=== PATIENT | female | born 1980 | race Caucasian/White ===

== ENCOUNTER 2024-03-22 22:16 | Emergency (ER) | payer OTHER ==
[2024-03-22 22:42] LABS: BASOPHILS % (AUTO) 0.4 %; EOSINOPHILS # (AUTO) 0.1 10^3/uL (0.0-0.7); EOSINOPHILS % (AUTO) 1.2 %; HCT - HEMATOCRIT 37.8 % (37.0-47.0); HGB - HEMOGLOBIN 12.5 g/dL (12.0-16.0); LYMPHOCYTES # (AUTO) 1.7 10^3/uL (1.5-3.5); MEAN CORPUSCULAR HEMOGLOBIN 29.4 pg (27.0-31.0); MEAN CORPUSCULAR HGB CONC 33.1 g/dL (32.0-36.0); MEAN CORPUSCULAR VOLUME 88.9 fL (81.0-99.0); MONOCYTES # (AUTO) 0.7 10^3/uL (0.0-1.0); MONOCYTES % (AUTO) 6.5 %; NEUTROPHILS # (AUTO) 7.7 10^3/uL (1.5-6.6); NEUTROPHILS % (AUTO) 74.6 %; PLT - PLATELET COUNT 352 10^3/uL (130-450); RED BLOOD COUNT 4.25 10^6/uL (4.20-5.40); RED CELL DISTRIBUTION WIDTH 11.7 % (12.0-15.0); WHITE BLOOD COUNT 10.3 x10^3/uL (4.8-10.8)
[2024-03-22 23:04] LABS: ALBUMIN 4.5 g/dL (3.2-5.5); ALBUMIN/GLOBULIN RATIO 1.6 (1.0-2.2); BILIRUBIN,TOTAL 0.6 mg/dL (0.2-1.0); CALCIUM 9.2 mg/dL (8.5-10.3); CREATININE 0.7 mg/dL (0.6-1.3); POTASSIUM 3.4 mmol/L (3.5-4.5); TOTAL PROTEIN 7.3 g/dL (6.4-8.9)
[2024-03-22 23:32] LABS: BILIRUBIN,URINE NEGATIVE (NEGATIVE); CLARITY,URINE CLEAR (CLEAR); GLUCOSE, URINE (UA) NEGATIVE (NEGATIVE); KETONES,URINE (UA) NEGATIVE (NEGATIVE); LEUKOCYTE ESTERASE, URINE NEGATIVE (NEGATIVE); NITRITE,URINE NEGATIVE (NEGATIVE); OCCULT BLOOD,URINE NEGATIVE (NEGATIVE); PH,URINE 5.5 PH (5.0-7.5); PROTEIN,URINE NEGATIVE (NEGATIVE); UROBILINOGEN,URINE 0.2 (NORMAL) E.U./dL (NORMAL)
--- NOTE | 2024-03-23 00:50 | ED Physician Documentation ---
PD HPI ABD PAIN - Stated complaint Stated Complaint: ABD PX - Chief complaint Chief Complaint: Abd Pain - History obtained from History obtained from: Patient - Additional information Additional information: HPI from patient. Patient c/o abdominal pain, epigastric without radiation, onset approximately 9 AM this morning. Pain has been constant and without ameliorating factors; took pepto bismol without relief. Pain is partially exacerbated with deep inspiration (pleuritic component). Denies h/o similar symptoms. Denies nausea, vomiting. Denies fever. No past abdominal surgical history. Review of Systems Constitutional: denies: Fever, Chills, Sweats Cardiac: reports: Reviewed and negative Respiratory: reports: Reviewed and negative GI: reports: Abdominal Pain. 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 : None HEENT: None Psych: None Musculoskeletal: None Derm: None - Past Surgical History Past Surgical History: Yes - Present Medications Home Medications: Ambulatory Orders Medication Instructions Recorded Confirmed Tizanidine HCl [Zanaflex] 1 cap PO Q8H PRN 03/22/24 03/22/24 HYDROcod/ACETAM 5/325 [Ceres 5/325] 1 - 2 tablet PO Q6H PRN #14 tablet 03/23/24 Ondansetron Odt [Zofran Odt] 4 mg TL Q6H PRN #10 tablet 03/23/24 - Allergies Allergies/Adverse Reactions: Allergies Allergy/AdvReac Type Severity Reaction Status Date / Time No Known Drug Allergies Allergy Verified 03/22/24 22:24 - Social History Does the pt smoke?: No Smoking Status: Never smoker Does the pt drink ETOH?: No - Immunizations Immunizations are current?: Yes PD ED PE NORMAL - Vitals Vital signs reviewed: Yes - General General: Alert and oriented X 3, Well developed/nourished, Other (appears to be in waxing and waning painful discomfort during H+P) - Cardiac Cardiac: RRR, No murmur - Respiratory Respiratory: No respiratory distress, Clear bilaterally - Abdomen Abdomen: Soft, Non tender, Non distended - Back Back: No CVA TTP - Derm Derm: Normal color, Warm and dry Results - Vitals Vitals: Vital Signs - 24 hr 03/23/24 03/23/24 01:00 01:49 Heart Rate 86 82 Respiratory 16 Rate Blood Pressure 130/84 H 126/76 O2 Saturation 98 95 Oxygen O2 Source Room air - Labs Labs: Laboratory Tests 03/22/24 03/22/24 03/22/24 22:39 22:39 23:24 WBC 10.3 RBC 4.25 Hgb 12.5 Hct 37.8 MCV 88.9 MCH 29.4 MCHC 33.1 RDW 11.7 L Plt Count 352 MPV 9.0 Neut # (Auto) 7.7 H Lymph # (Auto) 1.7 [place] # (Auto) 0.7 Eos # (Auto) 0.1 Baso # (Auto) 0.0 Absolute Nucleated RBC 0.00 Nucleated RBC % 0.0 Sodium 139 Potassium 3.4 L Chloride 105 Carbon Dioxide 28 Anion Gap 6.0 BUN 11 Creatinine 0.7 Estimated GFR (MDRD) 91 Glucose 148 H Calcium 9.2 Total Bilirubin 0.6 AST 11 ALT 13 Alkaline Phosphatase 64 Total Protein 7.3 Albumin 4.5 Globulin 2.8 Albumin/Globulin Ratio 1.6 Lipase 19 Urine Color YELLOW Urine Clarity CLEAR Urine pH 5.5 Ur Specific [place] >=1.030 H Urine Protein NEGATIVE Urine Glucose (UA) NEGATIVE Urine Ketones NEGATIVE Urine Occult Blood NEGATIVE Urine Nitrite NEGATIVE Urine Bilirubin NEGATIVE Urine Urobilinogen 0.2 (NORMAL) Ur Leukocyte Esterase NEGATIVE Ur Microscopic Review NOT INDICATED Urine Culture Comments NOT INDICATED PD Medical Decision Making - ED course Complexity details: reviewed results, re-evaluated patient, considered differential, d/w patient ED course: Normal CBC except insignificant/noncontributory findings of low RDW, elevated neutrophils (but normal WBC). Normal ER abdominal panel except minimal hypokalemia (3.4) and mild hyperglycemia (148). Normal LFTs, lipase. 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 On my bedside US, I find strong evidence of 1-2 gallstones in a mildly dilated gallbladder. Her description of symptoms, location of pain, and my US findings are all s/o biliary colic. I discussed results with patient along with my suspected diagnosis. I explained that she would likely benefit from outpatient surgical consult but would also likely need confirmatory US (by [employer]) which can be arranged through her PCP. She is given IM toradol in ED and discharged with take-home vicodin, e-prescribed ([facility]) vicodin and zofran (patient drove to ED and wishes to drive back home and thus not given narcotic/opiate in ED). Return precautions reviewed. Departure - Departure Disposition: 01 Home, Self Care Clinical Impression: Biliary colic Condition: Good Instructions: ED Gallstone W Biliary Colic Follow-Up: Kerrie Agrawal MD [Provider Admit Priv/Credential] - Prescriptions: HYDROcod/ACETAM 5/325 [Ceres 5/325] 1 - 2 tablet PO Q6H PRN #14 tablet PRN Reason: Pain Ondansetron Odt [Zofran Odt] 4 mg TL Q6H PRN #10 tablet PRN Reason: Nausea / Vomiting Comments: There were no concerning nor diagnostic findings on tonight's blood tests. On my bedside ultrasound, it appears that you have 1 or 2 gallstones in your gallbladder; these are highly likely the cause of your symptoms. As long as there is no fever, the symptoms are adequately controlled, and the blood tests (particularly the liver function tests and pancreatic enzyme test) are normal, t he treatment of gallstones typically can proceed in the outpatient setting. You should next meet with a general surgeon to discuss possible cholecystectomy (surgical removal of the gallbladder). This depends on a number of different factors and the general surgeon can advise you as to the pros and cons of having this surgery. In the meantime, you should also endeavor to have an outpatient confirmatory ultrasound. In order to have this done, you should contact your primary care provider and explain that the ultrasound in the emergency department was performed by the ER physician and that I am recommending you get a confirmatory ultrasound by an inspection supervisor. Your primary care provider, at their discretion, can order this test. I have electronically submitted prescriptions for Vicodin (narcotic/opiate pain medication) and ondansetron (antinausea medication) to the [facility] pharmacy in [place]. I am prescribing a short course of narcotic pain medication for you. These are p otentially dangerous and addictive medications that should be used carefully. These medications may constipate you. Take an abye-vif-kpyiijq stool softener (docusate) twice daily with plenty of water while taking these medications. If you go 24 hours without a bowel movement, take [id number] miralax, per package instructions. Do not drink or drive while taking these medications. If you received narcotic or sedating medications while in the emergency department, do not drive for 24 hours. Store this medication in a safe, secure place and out of reach of children. It is a violation of federal law to give or sell this medication to another person or to use in a manner other than prescribed. The ED will not refill narcotic prescriptions, including prescriptions lost or stolen. To dispose of unwanted medications: 1. [facility] at [address] in [place] has a medication drop box. They accept prescription medications (in pill form) Thursday through Thursday 9:00 a.m. to 5:00 p.m. 2. [facility] accepts prescription medications (in pill form only) for disposal year round. Call for more information. 3. Contact the [facility] for the next [facility] sponsored prescription drug collection event. , [phone], or [phone]; Discharge Date/Time: 03/23/24 01:50
[2024-03-23] MEDS: KETOROLAC 60 MG/2 ML VIAL IM STA (01:43)
[2024-03-23] MEDS: HYDROcod/ACET 5/325 Prepack 4 PO STA (01:46)
[2024-03-23 01:53] VITALS: BP 126/76; O2SAT 95
== END 2024-03-23 01:50 | disposition home or self-care (01) ==
LOC: ED 22:16
DX: K80.70 Calculus of gallbladder and bile duct without cholecystitis without obstruction (principal)
CPT/HCPCS: 36415; 80053; 81001; 81003; 83690; 85025; 87086; 96372; 99283; 99284